=== PATIENT | male | born 1975 | race Caucasian/White ===

== ENCOUNTER 2017-12-08 06:51 | Emergency (ER) | END 2017-12-08 10:12 | disposition home or self-care (01) ==

== ENCOUNTER 2018-12-06 11:05 | Emergency (ER) | payer MEDICAID ==
[~2018-12-06] VITALS: Ht 172.7 cm; Wt 84.0 kg
[~2018-12-06 11:05] MED LIST: AMOX1TAB10 PO
[2018-12-06 11:10] VITALS: BP 135/75; PULSE 72; RESP 20; Ht 172.7 cm; Wt 84.0 kg
[2018-12-06] MEDS ORDERED: ACETAMINOPHEN 500 MG TAB PO STA (12:38)
[2018-12-06] MEDS ORDERED: ALBUTEROL 0.083% (NEB) 2.5 MG/3 ML AMP HHN STA (12:39)
--- NOTE | 2018-12-06 12:46 | ERD ---
ER Documentation Chief Complaint Chief Complaint Complains of a fever cough cold and flu systoms x 2 days HPI 43-year-old male complaining of fever, chills, body ache, nasal congestion, and cough times 4 days. Patient reports some nausea, vomiting, and diarrhea for last 3 days. He had 2 episodes of nonbilious and nonbloody vomiting yesterday, one episode today. He took Advil 5 hours ago. Patient did not receive fluids of vaccination this year. Denies shortness of breath. Denies abdominal pain. Patient reports history of pacemaker due to occasional bradycardia. ROS All systems reviewed and are negative except as per history of present illness. Medications Home Meds Active Scripts Albuterol Sulfate* (Ventolin HFA*) 18 Gm Hfa.aer.ad, 2 PUFF INHALATION Q4H, #1 INHALER Prov:ALYSSIA GARCIA. DIAL MARKER 12/06/18 Guaifenesin* (Robitussin*) 100 Mg/5 Ml Syrup, 200 MG PO Q4H PRN for COUGH, #120 ML Prov:ALYSSIA GARCIA NP 12/06/18 Sodium Chloride (Saline Nasal Mist) 126 Ml Mist, 2 SPRAY NASAL Q2H PRN for NASAL CONGESTION, #1 BOTTLE Prov:ALYSSIA GARCIA DIAL MARKER 12/06/18 Ibuprofen* (Motrin*) 600 Mg Tab, 600 MG PO Q6H PRN for PAIN AND OR ELEVATED TEMP, #30 TAB Prov:ALYSSIA GARCIA NP 12/06/18 Acetaminophen* (Tylophen*) 500 Mg Capsule, 1 CAP PO Q6H PRN for PAIN AND OR ELEVATED TEMP, #20 CAP Prov:ALYSSIA GARCIA DIAL MARKER 12/06/18 Amoxicillin/Potassium Clav (Amox-Clav 875-125 mg Tablet) 875-125 mg Tab, 1 TAB PO BID for 7 Days, #14 TAB Prov:EULALIO DICKSON PA-C 12/08/17 Allergies Allergies: Coded Allergies: No Known Allergy (Unverified , 12/06/18) PMhx/Soc History of Surgery: Yes (Pacemaker placement) Anesthesia Reaction: No Hx Neurological Disorder: No Hx Respiratory Disorders: No Hx Cardiac Disorders: Yes Hx Psychiatric Problems: No Hx Miscellaneous Medical Probl: Yes (Pterygium) Hx Alcohol Use: No Hx Substance Use: No Hx Tobacco Use: No Physical Exam Vitals Vital Signs Date Temp Pulse Resp B/P (MAP) Pulse Ox O2 O2 Flow FiO2 Time Delivery Rate 12/06/18 65 20 97 21 13:00 12/06/18 100.8 12:45 12/06/18 100.9 72 20 135/75 96 11:10 (95) Physical Exam General: Well-developed, well-nourished, conscious and coherent, in no distress Skin: Warm and dry without rash, good texture and turgor Head: Normocephalic without evidence of trauma Eyes: Sclera and conjunctivae normal Nose/Face: Nasal congestion Mouth/throat: Mucous membranes are moist. Posterior pharynx clear without erythema or exudates Neck: Supple without meningismus or adenopathy. Carotids are equal. Trachea midline. No bruits or JVD Chest: Normal AP diameter. Good expansion without retractions. Nontender. Fine crackles noted in the right lower lobes, lungs otherwise clear Heart: Regular rate and rhythm. No murmur, rub, or gallops heard Abdomen: Soft and nontender without masses, guarding, or rebound. Bowel sounds are active. No hepatosplenomegaly Extremities: Full range of motion. Good strength bilaterally. No erythema, ecchymosis, or edema. Peripheral pulses are intact. Sensation intact Neuro: Alert and oriented 4, GCS 15. Results 24 hrs Current Medications Medications Dose Sig/Virgil Start Time Status Last (Trade) Ordered Route PRN Stop Time Admin Dose Reason Admin 500 mg ONCE STAT 12/06/18 DC 12/06/18 Acetaminophen PO 12:38 12:45 (Tylenol 12/06/18 12:39 Tab) Albuterol 2.5 mg ONCE STAT 12/06/18 DC 12/06/18 (Proventil HHN 12:39 13:00 0.083% (Neb)) 12/06/18 12:40 ROCEDURE: XR Chest. CLINICAL INDICATION: Cough. TECHNIQUE: Single portable view of the chest was obtained COMPARISON: None FINDINGS: Left chest pulse generator with dual intact lead(s). Heart is borderline enlarged. Mediastinum is unremarkable. Linear opacities at the bilateral lung base(s). No pleural effusion or pneumothorax. No acute osseous abnormality. IMPRESSION: Mild cardiomegaly. Bibasilar atelectasis. No pneumothorax. Left chest pulse generator is intact. RPTAT: PP Physician Sammi Date Time Electronically viewed and signed by Mary Vann Physician on 12/06/2018 13:25 ME/ CC: ALYSSIA GARCIA. DIAL MARKER Procedures/MDM Patient presents with flulike illness. Influenza swabs were negative for flu A and B. Chest x-ray is showed bilateral basal atelectasis, without any sign of pneumonia. Patient does have some cough with deep inspiration, albuterol nebulizer treatment provided. Patient reports improvement cough after nebulizer treatment. I think patient likely to have a viral illness. Patient appears well, stable for discharge and outpatient management. Medical decision making shared with patient and family. Education provided to patient and family. Patient and family expressed understanding of the plan. Medications on discharge: Albuterol HFA, ibuprofen, Tylenol, saline nasal mist, Robitussin. Follow-up: Primary care provider in 2-3 days or return to ED if worse. Disclaimer: Inadvertent spelling and grammatical errors are likely due to EHR/dictation software use and do not reflect on the overall quality of patient care. Also, please note that the electronic time recorded on this note does not necessarily reflect the actual time of the patient encounter. Departure Diagnosis: Primary Impression: Flu-like symptoms Condition: Stable ALYSSIA GARCIA NP Dec 06, 2018 12:46
[2018-12-06] MEDS ORDERED: ACET500C5 PO (13:53)
[2018-12-06] MEDS ORDERED: SODI126M NASAL (13:53)
[2018-12-06] MEDS ORDERED: GUAI-637 PO (13:53)
[2018-12-06] MEDS ORDERED: IBUP-1542 PO (13:53)
[2018-12-06] MEDS ORDERED: ALBU18HF INHALATION (13:53)
== END 2018-12-06 14:05 | disposition home or self-care (01) ==
LOC: FTE 11:05
DX: R50.9 Fever, unspecified (principal); R05 Cough; R09.81 Nasal congestion; R11.2 Nausea with vomiting, unspecified; R19.7 Diarrhea, unspecified; R40.2412 Glasgow coma scale score 13-15, at arrival to emergency department; Z95.0 Presence of cardiac pacemaker
CPT/HCPCS: 71046; 87400; 94664; Z7502; Z7610

== ENCOUNTER 2019-07-23 20:57 | Observation (INO) | payer MEDICAID, OTHER ==
[~2019-07-23] VITALS: Ht 172.7 cm; Wt 83.6 kg
[~2019-07-23 20:57] MED LIST changes: +ACET500C5 PO; +ALBU18HF INHALATION; +BENA5TAB33 PO; +CARV3.1260 PO; +GUAI-637 PO; +IBUP-1542 PO; +SODI126M NASAL
[2019-07-23] MEDS ORDERED: ASPIRIN 81 MG TAB PO STA (21:06)
[2019-07-23] MEDS ORDERED: NITROGLYCERIN 2% 1 GM OINT PKT TD STA (21:06)
[2019-07-23] MEDS ORDERED: NITROGLYCERIN (SL) 0.4 MG TAB SL PRN ×2 (21:30→23:00)
[2019-07-23] MEDS ORDERED: ONDANSETRON 4 MG INJ IV PRN (23:00)
[2019-07-23] MEDS ORDERED: NACL 0.9% 3 ML SYG IV SCH (23:00)
[2019-07-23] MEDS ORDERED: DOCUSATE SODIUM 100 MG CAP PO PRN (23:00)
[2019-07-23] MEDS ORDERED: morphine 2 MG INJ IV PRN (23:00)
[2019-07-23] MEDS ORDERED: BISACODYL (EC) 5 MG TAB PO PRN (23:00)
[2019-07-24 02:03] VITALS: BP 116/76; PULSE 58; RESP 20
[2019-07-24 02:05] VITALS: Ht 172.7 cm; Wt 83.6 kg
[2019-07-24 04:00] VITALS: BP 103/64; PULSE 62; RESP 21
[2019-07-24 07:42] VITALS: BP 98/64; PULSE 62; RESP 18
[2019-07-24] MEDS ORDERED: SALINE 0.65% 45 ML NAS SPRAY NASAL PRN (09:00)
[2019-07-24] MEDS: ALBUTEROL HFA 8 GM INHALER INH SCH ×2 (11:32→12:36)
[2019-07-24] MEDS: ACETAMINOPHEN 325 MG TAB PO PRN ×2 (11:35→21:25)
[2019-07-24 11:40] VITALS: BP 144/82; PULSE 66; RESP 19
[2019-07-24] MEDS ORDERED: ALBUTEROL HFA 8 GM INHALER INH PRN (14:30)
[2019-07-24 15:28] VITALS: BP 125/76; PULSE 60; RESP 17
[2019-07-24 21:18] VITALS: BP 131/71; PULSE 61; RESP 18
[2019-07-25 00:16] VITALS: BP 124/75; PULSE 61; RESP 19
[2019-07-25 07:24] VITALS: BP 131/83; PULSE 61; RESP 17
[2019-07-25] MEDS ORDERED: BENAZEPRIL 5 MG TAB PO SCH (09:00)
[2019-07-25 12:00] VITALS: BP 117/72; PULSE 60; RESP 20
== END 2019-07-25 15:36 | disposition home or self-care (01) ==
LOC: E/R 20:57 → TEL 22:43
PROVIDERS: ADMIT Family Medicine; ATTEND Internal Medicine
DX: R07.89 Other chest pain (principal); I42.9 Cardiomyopathy, unspecified; I10 Essential (primary) hypertension; Z72.0 Tobacco use; R42 Dizziness and giddiness; Z95.810 Presence of automatic (implantable) cardiac defibrillator; Z82.49 Family history of ischemic heart disease and other diseases of the circulatory system
CPT/HCPCS: 36415; 71045; 80048; 80053; 80307; 82550; 82553; 83036; 83690; 83735; 83880; 84155; 84300; 84443; 84484; 85025; 85610; 93005; 93306; 99285; G0378; J2270